=== PATIENT | male | born 1940 | race Caucasian/White ===

== ENCOUNTER 2019-05-25 07:55 | Day surgery (SDC) | payer MEDICARE, BC ==
[~2019-05-25 07:55] MED LIST: Bupivacaine 0.5% 50 ML MDV ONE; Lidocaine 1% with EPINEPHrine 1:100,000 50 ML MDV ONE; Midazolam 1 MG/ML 2 ML SDV ONE; Propofol 200 MG/20 ML SDV ONE; fentaNYL 100 MCG/2 ML SDV ONE
[2019-05-25] MEDS ORDERED: ceFAZolin 2 GM in Sodium Chloride 0.9% 50 ML IV ONE (08:30)
[2019-05-25] MEDS ORDERED: Dextrose 5%-Lactated Ringers 1,000 ML IV SCH (08:30)
[2019-05-25] MEDS ORDERED: Propofol 200 MG/20 ML SDV ONE (09:56)
[2019-05-25 11:13] VITALS: BP 121/62; PULSE 51
--- NOTE | 2019-06-04 12:10 | OR ---
DATE OF PROCEDURE: 05/25/2019 SURGEON: Len Blair MD PREOPERATIVE DIAGNOSIS: Indications for central venous access. POSTOPERATIVE DIAGNOSIS: Indications for central venous access. PROCEDURE: Insertion of a Bard port via right subclavian vein approach (21644). ANESTHESIA: Local plus IV sedation. INDICATION FOR PROCEDURE: A 79-year-old presenting with recurrent lymphoma and will be requiring some additional chemotherapy. Previously had a port placed on the left side. We will try to place on this side, but that may not be usable at this point, and we might need to go over to the right side for the port placement. Potential risks per se including bleeding, infection, injury to the lung and/or vasculature, problems with the port becoming infected or occluded were all gone over, and the patient wishes to proceed. DETAILS OF PROCEDURE: The patient was taken to the operating room and placed in a supine position. IV sedation was administered, after which the upper chest and neck areas were prepped and draped, and initially, the left subclavian area was anesthetized with 1% lidocaine. Vein could be cannulated several times, but at no point could be manipulated through what appeared to be a probable stricturing or occlusion at the junction of the subclavian and jugular vein. Attention was then taken to the right side and that area was similarly anesthetized with 1% lidocaine mixed with Marcaine and the right subclavian vein cannulated and the wire easily manipulated into the superior vena cava. Some additional local was then injected and a transverse infraclavicular incision was made and carried down through the skin and subcutaneous tissue and through the pectoralis major fascia. A pocket behind the pectoralis fascia was then constructed bluntly, and the port which was put together and flushed with heparinized saline was cut such that the catheter tip would lie in the area of superior vena cava-right atrial junction, and the port now being in the pocket, the catheter was deployed with the peel-away catheter and the introducer system. Good in and outflow through the port was noted and the port was flushed with heparinized saline. The incision was closed with some 3-0 and 4-0 Vicryl stitch deep and a 4-0 Vicryl subcuticular stitch, dressing applied. The patient was taken to the recovery room in satisfactory condition. Len Blair MD /[id number]
== END 2019-05-25 11:40 | disposition home or self-care (01) ==
LOC: JP.SDS 07:55
PROVIDERS: ATTEND Surgery
DX: C85.90 Non-Hodgkin lymphoma, unspecified, unspecified site (principal); J44.9 Chronic obstructive pulmonary disease, unspecified; K21.9 Gastro-esophageal reflux disease without esophagitis
CPT/HCPCS: 36561; C1788; J0690; J1642; J2250; J2704; J3010; J3490; J7042; J7050